=== PATIENT | female | born 2000 | race Caucasian/White ===

== ENCOUNTER 2019-05-26 13:30 | Outpatient (CLI) | payer BC, SELFPAY ==
--- NOTE | ~2019-05-26 | US_ITS ---
EXAMINATION: US pelvic complete w TV EXAM DATE: 05/26/2019 14:11 INDICATION: IUD placement. TECHNIQUE: Pelvic transabdominal and transvaginal sonogram was performed. There are multiple graysca le and Doppler images available for interpretation. There is no prior study for comparison. FINDINGS: Uterus measures 7.5 x 2.3 x 3.7 cm, with IUD centrally located inside the endometrial cavi ty. Endometrial stripe measures 4 mm, within normal limits. There is no free pelvic fluid. Right adnexa: The ovary measures 2.7 x 1.7 x 1.8 cm and is morphologically normal. Ovarian vascular f low confirmed. Left adnexa: The ovary measures 2.4 x 1.5 x 1.1 cm and is morphologically normal. Ovarian vascular fl ow confirmed. IMPRESSION: 1. Unremarkable pelvic ultrasound exam. Reviewed, dictated and finalized at location B. MACHINE TENDER
== END 2019-05-26 13:31 | disposition home or self-care (01) ==
PROVIDERS: PCP Internal Medicine; Visit Provider Obstetrics & Gynecology
DX: N93.9 Abnormal uterine and vaginal bleeding, unspecified (principal)
CPT/HCPCS: 76830; 76856

== ENCOUNTER 2020-04-30 18:45 | Emergency (ER) | payer BC, SELFPAY ==
[2020-04-30 18:48] VITALS: BP 140/80; PULSE 92; RESP 14; TEMP 36.6; O2SAT 100
[2020-04-30 20:16] LABS: Add Urine Microscopic? YES; Appearance Urine Cloudy (Clear); Bacteria Urine Trace /hpf; Bilirubin Urine Negative (Negative); Blood Urine 2+ (Negative); Calcium Oxalate Crystals Urine Present /hpf; Color Urine Yellow (Yellow); Glucose Urine UA Negative (Negative); Ketones Urine 1+ mg/dL (Negative); Leukocyte Esterase Ur 3+ LEU/UL (Negative); Mucus Urine Heavy /lpf; Nitrate Urine Negative (Negative); Protein Urine 2+ mg/dL (Negative); RBC Urine 21-50 /hpf (0-2); Specific Grav Ur 1.027 (1.001-1.035); Squamous Epithelial Cell Urine Many /hpf (Few); WBC Urine >75 /hpf
--- NOTE | 2020-04-30 20:19 | ED.FEMALEGU ---
HPI - Female Genitourinary General Chief complaint: LABORATORY PHLEBOTOMIST Stated complaint: vaginal infection Time Seen by Provider: 04/30/20 18:56 Source: patient Mode of arrival: ambulatory Limitations: clinical condition History of Present Illness HPI Narrative: Patient reports dysuria, vaginal discharge and burning x3 days. Patient reports seeing PASSENGER RATE CLERK last week and diagnosed with a yeast infection given cream, patient reports symptoms have escalated with increased pain and increased discomfort with urination. Related Data Home Medications Medication Instructions Recorded Confirmed bupropion HCl 300 mg PO DAILY 04/30/20 04/30/20 doxycycline hyclate 20 mg PO BID 04/30/20 04/30/20 spironolactone 100 mg PO DAILY 04/30/20 04/30/20 Allergies Allergy/AdvReac Type Severity Reaction Status Date / Time droperidol Allergy Agitated Verified 04/30/20 19:09 Review of Systems Review of Systems: Narrative: CONSTITUTIONAL: Denies fever, chills, or sweats. EYES: Denies visual changes, redness, or discharge. ENT: Denies rhinorrhea, congestion, sore throat, or otalgia. CARDIOVASCULAR: Denies chest pain, palpitations, or edema. RESPIRATORY: Denies cough or dyspnea. GASTROINTESTINAL: Denies abdominal pain, nausea, vomiting, or diarrhea. GENITOURINARY: Reports dysuria, vaginal discharge and vaginal pain. SKIN: Denies rash or itching. MUSCULOSKELETAL: Denies back pain, joint pain, or myalgia. NEUROLOGIC: Denies headache, numbness, dizziness, or weakness. PSYCHIATRIC: Denies anxiety or depression. PMFSH Past Medical History Medical History (Updated 04/30/20 @ 20:31 by SARMAD Morse) Anxiety Asthma Depression Ear infection Surgical History Surgical History (Updated 04/30/20 @ 20:32 by SARMAD Morse) No significant past surgical history Family History Family History (Updated 04/30/20 @ 20:32 by SARMAD Morse) Other Crohn's disease IBS (irritable bowel syndrome) Social History Social History (Updated 04/30/20 @ 20:32 by SARMAD Morse) Smoking status: Never smoker Alcohol intake: never Substance use: never Living arrangements: with family Exam Narrative: Exam Narrative: GENERAL: Well-appearing, well-nourished, and in no acute distress. HEAD: Normocephalic, atraumatic. EYES: No redness or drainage. ENT: Mucous membranes pink and moist. CHEST: No respiratory distress. HEART: Regular rate and rhythm. : Patient unable to tolerate speculum exam, external vaginal discharge noted, erythema and irritation noted EXTREMITIES: Normal range of motion. SKIN: Warm, dry, no rash. NEURO: No focal deficits. Alert and oriented x3. Gait steady. PSYCH: Normal affect. No signs of depression or anxiety. Course Vital Signs Vital signs: Vital Signs Temperature 36.6 C 04/30/20 18:48 Pulse Rate 92 04/30/20 18:48 Respiratory Rate 14 04/30/20 18:48 Blood Pressure 140/80 04/30/20 18:48 Pulse Oximetry 100 04/30/20 18:48 Temperature 36.6 C 04/30/20 18:48 Pulse Rate 80 04/30/20 20:24 Respiratory Rate 20 04/30/20 20:24 Blood Pressure 118/66 04/30/20 20:24 Pulse Oximetry 100 04/30/20 20:24 MDM - Female Genitourinary MDM Narrative Medical decision making narrative: Discussed with patient yeast infections and bacterial vaginosis. Patient also concerned with UTI. Patient reports dysuria and scanty amounts of urine. Patient to be treated for UTI at this time. Also discussed treating patient for BV as she had whitish, hoang vaginal discharge noted. Patient also given Diflucan after antibiotics are completed for yeast infection. Patient is aware of the need to follow-up with PASSENGER RATE CLERK in 3 to 5 days if symptoms increase. Differential Diagnosis Differential diagnosis: Likely urinary tract infection, bacterial vaginosis, vaginitis and other Lab Data Labs: Lab Results 04/30/20 Range/Units 20:04 Urine Color Yellow (Yellow) Urine Appearance Cloudy H (Morris
[2020-04-30 20:24] VITALS: BP 118/66; PULSE 80; RESP 20; O2SAT 100
== END 2020-04-30 20:26 | disposition home or self-care (01) ==
PROVIDERS: Emergency Provider Nurse Practitioner; PCP Internal Medicine
DX: N39.0 Urinary tract infection, site not specified (principal); B37.3 Candidiasis of vulva and vagina; J45.909 Unspecified asthma, uncomplicated; F41.9 Anxiety disorder, unspecified; F32.9 Major depressive disorder, single episode, unspecified
CPT/HCPCS: 81001; 81025; 87086; 99283

== ENCOUNTER 2020-05-01 06:42 | Emergency (ER) | payer BC, SELFPAY ==
--- NOTE | ~2020-05-01 | CT_ITS ---
EXAMINATION: CT BRAIN W/O DATE: 05/01/2020 07:55 INDICATION: Left-sided numbness. TECHNIQUE: Computed tomography (CT) of the head was performed without intravenous contrast. The dose- length product was 529.67 mGy-cm. The mA was adjusted according to patient size. Iterative reconstruc tion technique was employed. COMPARISON: No prior studies for comparison. FINDINGS: Normal brain parenchymal volume for age. Normal hoang-white differentiation. No acute intrac ranial hemorrhage, infarction, mass or mass effect. No ventriculomegaly or midline shift. Midline sagittal images demonstrate a normal corpus callosum, c raniovertebral junction and sella turcica. Basilar cisterns are patent. Paranasal sinuses and mastoids are pneumatized. No depressed skull fractures. IMPRESSION: 1. No acute intracranial abnormality. Reviewed, dictated and finalized at location A. NEERING COORDINATOR
--- NOTE | ~2020-05-01 | XR_ITS ---
EXAMINATION: XR chest 1V portable 05/01/2020 07:39 INDICATION: Dyspnea. Body aches. PROCEDURE: AP portable chest COMPARISON: No prior studies for comparison. FINDINGS: The lungs are clear. The cardiomediastinal silhouette is within normal limits. There are no pleural effusions. There is no pneumothorax suspected. IMPRESSION: 1: NO ACUTE CARDIOPULMONARY DISEASE. Reviewed, dictated and finalized at location A. N CHAIN OFFBEARER
--- NOTE | ~2020-05-01 | CT_ITS ---
EXAMINATION: CT abdomen pelvis w con DATE: 05/01/2020 09:20 INDICATION: Left-sided abdominal pain TECHNIQUE: Computed tomography (CT) of the abdomen and pelvis was performed with 100 cc Omnipaque 350 intravenous contrast. Automated exposure control and iterative reconstruction technique were employe d. Exam dose: 237.86 mGy-cm total exam DLP. COMPARISON: 05/26/2019 pelvic ultrasound 05/01/2020 portable AP chest FINDINGS: Normal heart size. No pericardial or pleural effusion. The lung bases are clear of infiltrate or consolidation. The gallbladder appears to be surgically abs ent. Some surgical clips are noted in the upper mid abdomen. No hepatic, splenic, pancreatic, and adrenal or renal space-occupying mass lesion is evident. Normal caliber of the abdominal aorta. No intraperitoneal or retroperitoneal or pelvic mass lesion or adenop athy or ascites. The urinary bladder, uterus and adnexal areas are unremarkable. No bowel obstruction, bowel wall thickening, pneumatosis or intraperitoneal free air is evident. There is a minimal free fluid in the dependent right pelvis. Up to 11.6 x 13.8 mm right inguinal lymph node. 9 x 12.6 mm left inguinal lymph node. No suspicious osteolytic or osteoblastic lesions. There is chronic mild anterior wedging of T12.. IMPRESSION: Postoperative changes of the abdomen Nonspecific mild bilateral inguinal lymph node prominence Reviewed, dictated and finalized at Location A. Reviewed, dictated and finalized at location B. KE ON MACHINE OPERATOR
[2020-05-01 06:45] VITALS: BP 120/75; PULSE 100; RESP 20; TEMP 36.6; O2SAT 99
[2020-05-01] MEDS: KETOROLAC 30 MG/ML VIAL (*BKC) IV PUSH (07:36)
[2020-05-01] MEDS: LORazepam INJ (*CRX) 2 MG/ML VIAL 0.5 MG IV PUSH (07:36)
[2020-05-01 07:41] LABS: Basophils Percent Auto 0.6 % (0.2-1.2); Eosinophils Absolute Auto 0.2 K/mm3 (0-0.3); Eosinophils Percent Auto 3.8 % (0-4.4); Hematocrit 42.9 % (37.0-47.0); Hemoglobin 14.4 g/dL (12.0-15.0); Immature Granulocyte Absolute 0.03 K/mm3 (0.00-0.031); Immature Granulocyte Percent A 0.5 % (0-0.5); Lymphocytes Absolute Auto 2.01 K/mm3 (0.9-3.2); Lymphocytes Percent Auto 32.2 % (18.3-44.2); Mean Corpuscular HGB Conc 33.6 g/dl (32-36); Mean Corpuscular Hemoglobin 29.6 pg (26-34); Mean Corpuscular Volume 88.1 fl (80-100); Mean Platelet Volume 10.7 fl (7.4-10.4); Monocytes Absolute Auto 0.8 K/mm3 (0.1-0.6); Monocytes Percent Auto 12.5 % (2.6-8.5); Neutrophils Absolute Auto 3.2 K/mm3 (1.3-6.7); Neutrophils Percent Auto 50.4 % (45.5-73.1); Platelet Count Result 183 k/mm3 (150-375); Red Blood Count 4.87 M/mm3 (4.2-5.4); White Blood Count 6.3 K/mm3 (4.5-10.0)
[2020-05-01 07:51] LABS: INR 0.9; Prothrombin Time 12.7 Seconds (11.1-14.7)
[2020-05-01 07:52] LABS: Partial Thromboplastin Time 29.8 SECONDS (22.3-36.8)
[2020-05-01 07:53] LABS: Atypical Lymphocytes Present; Platelet Estimate Adequate (Adequate)
[2020-05-01 07:58] LABS: Alanine Aminotransferase 17 U/L (4-35); Albumin Level 4.9 g/dL (3.5-5.1); Alkaline Phosphatase 69 U/L (38-126); Anion Gap 12 mmol/L (8-16); Aspartate Amino Transferase 27 U/L (14-36); Bilirubin,Total 0.4 mg/dL (0.2-1.3); Blood Urea Nitrogen 10 mg/dL (7-17); Calcium 9.8 mg/dL (8.4-10.2); Carbon Dioxide 28 mmol/L (22-30); Chloride 104 mmol/L (98-107); Estimated CRCL calculation 95 ml/min; Estimated Glomerular Filt Rate > 60; Glucose 104 mg/dL (65-105); Potassium 3.5 mmol/L (3.4-5.0); Sodium 144 mmol/L (137-145)
[2020-05-01 09:45] VITALS: BP 112/64; PULSE 55; RESP 18; O2SAT 100
--- NOTE | 2020-05-01 11:05 | PC.NURSE ---
received report from Lashaun CHILDRESS. patient resting on stretcher. mother in room. no change in patient's condition. waiting for exam by MD. patient advised to remove her clothing. has blanket.
--- NOTE | 2020-05-01 11:30 | PC.NURSE ---
outer pelvic exam done by MD. This RN present. swab done for herpes and sent to lab. all explained to patient.
--- NOTE | 2020-05-01 12:11 | ED.GENADULT ---
HPI - General Adult General Chief complaint: Allergic Reaction Stated complaint: Allergic Reaction Time Seen by Provider: 05/01/20 07:02 Source: RN notes reviewed History of Present Illness HPI narrative: Patient presents emergency department from home for multiple complaints. Patient was seen in the emergency department last night and diagnosed with bacterial vaginosis patient was at that time prescribed Diflucan as well as Flagyl and Keflex for possible UTI. Patient states she went to bed at 930 last night was having some vaginal pain. She states she woke this morning at 5 AM with severe pain in her vagina she states that with that she has a feeling of numbness in her left arm and leg as well as pain in her left back and feelings of shortness of breath. States that the tingling will come and go she denies any fevers or chills vomiting diarrhea or any other symptoms. She states that she is unable to even sit in the bed secondary to severe pain in her vagina Related Data Home Medications Medication Instructions Recorded Confirmed bupropion HCl 300 mg PO DAILY 04/30/20 04/30/20 doxycycline hyclate 20 mg PO BID 04/30/20 04/30/20 spironolactone 100 mg PO DAILY 04/30/20 04/30/20 Allergies Allergy/AdvReac Type Severity Reaction Status Date / Time droperidol Allergy Agitated Verified 05/01/20 06:49 Review of Systems Review of Systems: Narrative: Gen.: Denies fevers or chills Eyes: Denies eye pain or visual change ENT: Denies congestion Respiratory: Reports shortness of breath CV: Denies chest pain or palpitations GI: Denies abdominal pain nausea, emesis or diarrhea see HPI Musculoskeletal: Denies back pain or muscle pain Neuro: Reports numbness and tingling left-sided body Skin: Denies rash Except as documented, all other systems reviewed and negative [facility] Past Medical History Medical History Anxiety Asthma Depression Ear infection Surgical History Surgical History (Updated 04/30/20 @ 20:32 by SARMAD Morse) No significant past surgical history Family History Family History (Updated 04/30/20 @ 20:32 by SARMAD Morse) Other Crohn's disease IBS (irritable bowel syndrome) Social History Social History Smoking status: Never smoker Alcohol intake: never Substance use: never Exam Narrative: Exam Narrative: APPEARANCE: Anxious in appearance nontoxic, resting in bed HEENT: Normocephalic, atraumatic, OMM, EYES: PERRL, EOMI NECK: Supple, nontender, full range of motion without pain, no meningismus RESPIRATORY: No respiratory distress, clear to auscultation bilaterally with no rhonchi wheezing or rales CARDIOVASCULAR: RRR s murmur ABDOMINAL: Soft, nondistended tender palpation diffusely throughout abdomen with increased tenderness in the upper quadrant left lower quadrant : External exam shows several ulcerations on bilateral labia consistent with herpes infection, unable to tolerate speculum exam MUSCULOSKELETAL: Moves all extremities. No clubbing, cyanosis or edema. NEURO: A and O ?3, following commands, speech normal, cranial nerves II through XII grossly intact,muscle strength 5 out of 5 bilateral upper and lower extremities no pronator drift SKIN:: Warm, dry. Normal Color PSYCHIATRIC: Anxious and tearful Course Course Emergency Course: Patient is up walking in room upon initial evaluation she is crying in room unable to sit on bed. Unable to give much history and defers to her mother to give history On initial work-up the patient states she is feeling better following medications able to lay in bed. I discussed with them patient possible pelvic exam states she will be unable to tolerate but states they can do an external exam Discussed with Dr. Sousa presentation work-up agrees with plan for discharge patient be started on valacyclovir with follow-up as an outpatient Shekhar
[2020-05-01] MEDS: HYDROcodone/acetaminophen (*CRX) 5-325 MG TABLET 1 TAB PO (12:22)
[2020-05-01] MEDS: valACYclovir HCL 500 MG TABLET 1000 MG PO (12:22)
[2020-05-01 12:29] VITALS: BP 116/66; PULSE 78; RESP 16; O2SAT 100
[2020-05-03 20:46] LABS: Herpes Simplex Type 1 DNA PCR Not Detected (Not Detected); Herpes Simplex Type 2 DNA PCR Detected (Not Detected)
== END 2020-05-01 12:30 | disposition home or self-care (01) ==
PROVIDERS: Emergency Provider Emergency Medicine; PCP Internal Medicine
DX: A60.00 Herpesviral infection of urogenital system, unspecified (principal); F41.9 Anxiety disorder, unspecified; F32.9 Major depressive disorder, single episode, unspecified; J45.909 Unspecified asthma, uncomplicated
CPT/HCPCS: 36415; 70450; 71045; 74177; 80053; 81025; 85025; 85610; 85730; 87529; 96374; 96375; 99284; A9270; J1885; J2060; Q9967